=== PATIENT | female | born 1940 | race African-American/Black ===

== ENCOUNTER 2024-02-08 16:39 | Inpatient (IN) | payer MEDICARE, MEDICAID ==
[~2024-02-08] VITALS: Ht 175.3 cm; Wt 58.1 kg
[2024-02-08 16:41] VITALS: O2SAT 100
[2024-02-08] MEDS: MORPHINE SULFATE 4 MG/ML INJ (FOR IV/IM USE) IV ONE (17:25)
[2024-02-08 17:28] LABS: BASOPHILS % 0.3 % (0.0-2.0); EOSINOPHILS % 0.3 % (0.0-5.0); HEMATOCRIT. 32.8 % (36.0-48.0); LYMPHOCYTES % 8.3 % (20.0-50.0); MEAN CORPUSCULAR HEMOGLOBIN 30.2 pg (28.0-32.0); MEAN CORPUSCULAR HGB CONC 33.6 g/dL (31.0-37.0); MEAN CORPUSCULAR VOLUME 89.7 fL (81.0-99.0); MONOCYTES % 5.9 % (2.0-8.0); NEUTROPHILS % 85.2 % (40.0-76.0); PLATELET 286 x1000/uL (130-400); RED BLOOD CELL COUNT 3.66 mill/uL (4.2-5.4); RED CELL DISTRIBUTION WIDTH 15.1 % (11.6-14.6); WHITE BLOOD COUNT 8.6 x1000/uL (4.5-11.0)
[2024-02-08 17:30] LABS: CHLORIDE 111 mEq/L (98-107); POTASSIUM 5.2 mEq/L (3.5-5.1); SODIUM 136 mEq/L (136-145)
[2024-02-08 17:31] LABS: CARBON DIOXIDE 19 mEq/L (21-32)
[2024-02-08 17:32] LABS: CALCIUM 9.7 mg/dL (8.7-10.4)
[2024-02-08 17:36] LABS: CREATININE 1.5 mg/dL (0.6-1.0); GLUCOSE 139 mg/dL (70-105)
[2024-02-08 17:37] LABS: TROPONIN I HIGH SENSITIVITY 4 ng/L (3.0-34); UREA NITROGEN BLOOD 26 mg/dL (9-23)
[2024-02-08 18:05] LABS: PROTHROMBIN TIME 10.9 sec (9.6-11.0)
[2024-02-08] MEDS ORDERED: MORPHINE SULFATE 4 MG/ML INJ (FOR IV/IM USE) IV ONE (18:15)
[2024-02-08] MEDS: ASPIRIN 325MG EC TABLET PO ONE (18:30)
[2024-02-08] MEDS: MORPHINE SULFATE 4 MG/ML INJ (FOR IV/IM USE) IV NR (18:30)
[2024-02-08 19:29] LABS: TROPONIN I HIGH SENSITIVITY 4 ng/L (3.0-34)
[2024-02-08] MEDS: SODIUM CHLORIDE 0.9% 1,000 ML IV NR (19:41)
[2024-02-08] MEDS ORDERED: IOHEXOL-350 100 ML BOTTLE ONE (21:36)
[2024-02-08 23:30] VITALS: BP 130/32; PULSE 67; RESP 20; TEMP 97.5
[2024-02-09] MEDS ORDERED: LATA2.5D14 EACHEYE (00:42)
[2024-02-09] MEDS ORDERED: ASPI-1497 PO (00:42)
[2024-02-09] MEDS ORDERED: INDA2.5T5 PO (00:42)
[2024-02-09] MEDS ORDERED: ATOR40TA70 PO (00:42)
[2024-02-09] MEDS ORDERED: TERA5CAP4 PO (00:42)
[2024-02-09] MEDS ORDERED: IBUP-2029 PO (00:42)
[2024-02-09] MEDS ORDERED: OXYB-52 PO (00:42)
[2024-02-09] MEDS ORDERED: IPRA4AER INH (00:42)
[2024-02-09] MEDS ORDERED: FLUT9.9S BOTHNSTRLS (00:42)
[2024-02-09] MEDS ORDERED: LABE100T9 PO (00:42)
[2024-02-09] MEDS ORDERED: POLY17PO3 PO (00:42)
[2024-02-09] MEDS ORDERED: CYAN-50 PO (00:42)
[2024-02-09] MEDS ORDERED: SPIR100T5 PO (00:42)
[2024-02-09] MEDS ORDERED: TIOT18CA8 INH (00:42)
[2024-02-09] MEDS ORDERED: B50 GT (00:42)
[2024-02-09] MEDS ORDERED: MIRT-89 PO (00:42)
[2024-02-09] MEDS ORDERED: [UNRECOGNIZED DRUG - CODE] PO (00:42)
[2024-02-09] MEDS ORDERED: NIFE20CA PO (00:42)
[2024-02-09] MEDS ORDERED: CLONIDINE 0.1MG TABLET PO PRN (04:45)
[2024-02-09] MEDS ORDERED: HYDROCODONE/ACETAMINOPHEN 5/325MG TABLET PO PRN (04:45)
[2024-02-09 08:00] VITALS: BP 102/60; PULSE 78; RESP 16; TEMP 97.7
[2024-02-09] MEDS: ENOXAPARIN 30MG/0.3ML SYR SUBCUT SCH (09:00)
[2024-02-09 10:10] LABS: BASOPHILS % 0.2 % (0.0-2.0); HEMATOCRIT. 31.2 % (36.0-48.0); HEMOGLOBIN. 10.2 g/dL (12.0-16.0); LYMPHOCYTES % 8.1 % (20.0-50.0); MEAN CORPUSCULAR HEMOGLOBIN 29.8 pg (28.0-32.0); MEAN CORPUSCULAR HGB CONC 32.8 g/dL (31.0-37.0); MEAN CORPUSCULAR VOLUME 90.7 fL (81.0-99.0); MEAN PLATELET VOLUME 7.1 fl (7.4-10.4); MONOCYTES % 7.1 % (2.0-8.0); NEUTROPHILS % 84.6 % (40.0-76.0); PLATELET 279 x1000/uL (130-400); RED BLOOD CELL COUNT 3.44 mill/uL (4.2-5.4); RED CELL DISTRIBUTION WIDTH 15.7 % (11.6-14.6); WHITE BLOOD COUNT 10.9 x1000/uL (4.5-11.0)
[2024-02-09 10:38] LABS: CHLORIDE 111 mEq/L (98-107); POTASSIUM 5.8 mEq/L (3.5-5.1); SODIUM 137 mEq/L (136-145)
[2024-02-09 10:39] LABS: CALCIUM 10.2 mg/dL (8.7-10.4); CARBON DIOXIDE 19 mEq/L (21-32)
[2024-02-09 10:43] LABS: TROPONIN I HIGH SENSITIVITY 8 ng/L (3.0-34)
[2024-02-09 10:44] LABS: CREATININE 1.6 mg/dL (0.6-1.0); GLUCOSE 97 mg/dL (70-105); UREA NITROGEN BLOOD 27 mg/dL (9-23)
[2024-02-09 12:00] VITALS: BP 106/44; PULSE 82; RESP 18; TEMP 97
[2024-02-09 16:00] VITALS: BP 113/50; PULSE 72; RESP 18; TEMP 98
[2024-02-09] MEDS: NIFEDIPINE XL 30MG TAB PO SCH (17:00)
[2024-02-09] MEDS: LABETALOL HCL 200MG TABLET PO SCH (17:00)
[2024-02-09] MEDS ORDERED: NALOXONE HCL 0.4MG/ML VIAL IV PRN (17:15)
[2024-02-09 20:00] VITALS: BP 139/59; PULSE 72; RESP 19; TEMP 97.9
[2024-02-09] MEDS: TERAZOSIN HCL 5MG CAPSULE PO SCH (22:15)
[2024-02-09] MEDS: MIRTAZAPINE 15MG TABLET PO SCH (22:15)
[2024-02-09] MEDS: ATORVASTATIN CALCIUM 40MG TABLET PO SCH (22:16)
[2024-02-10] VITALS: BP 140/55; PULSE 75; RESP 19; TEMP 97.9
[2024-02-10 04:00] VITALS: BP 129/46; PULSE 79; RESP 19; TEMP 97.8
[2024-02-10 08:00] VITALS: BP 124/50; PULSE 63; RESP 18; TEMP 97.7
[2024-02-10] MEDS: ASPIRIN 81MG EC TABLET PO SCH (08:55)
[2024-02-10] MEDS: OXYBUTYNIN CHLORIDE 5MG TABLET PO SCH (08:56)
[2024-02-10] MEDS ORDERED: ALBUTEROL (0.083%) 2.5MG/3ML NEB HHN NR (10:00)
[2024-02-10] MEDS: SODIUM POLYSTYRENE SULFONATE 15 G/60 ML BOT PO NR (10:32)
[2024-02-10 12:00] VITALS: BP 141/64; PULSE 87; RESP 20; TEMP 97.9
[2024-02-10 16:00] VITALS: BP 122/54; PULSE 88; RESP 18; TEMP 97.6
[2024-02-10] MEDS: BENZONATATE 100MG CAPSULE PO PRN (18:03)
[2024-02-10 20:00] VITALS: BP 136/49; PULSE 67; RESP 19; TEMP 97.9
[2024-02-11] VITALS (7 sets, daily range): BP systolic 94–149; BP diastolic 39–69; PULSE 64–83; RESP 16–19; TEMP 97–98.1
[2024-02-11 07:45] LABS: CALCIUM 9.4 mg/dL (8.7-10.4)
[2024-02-11 07:49] LABS: BASOPHILS % 0.3 % (0.0-2.0); HEMATOCRIT. 30.4 % (36.0-48.0); HEMOGLOBIN. 10.3 g/dL (12.0-16.0); LYMPHOCYTES % 9.7 % (20.0-50.0); MEAN CORPUSCULAR HEMOGLOBIN 30.1 pg (28.0-32.0); MEAN CORPUSCULAR HGB CONC 33.9 g/dL (31.0-37.0); MEAN CORPUSCULAR VOLUME 88.8 fL (81.0-99.0); MEAN PLATELET VOLUME 7.4 fl (7.4-10.4); MONOCYTES % 4.9 % (2.0-8.0); NEUTROPHILS % 84.1 % (40.0-76.0); PLATELET 295 x1000/uL (130-400); RED BLOOD CELL COUNT 3.42 mill/uL (4.2-5.4); RED CELL DISTRIBUTION WIDTH 15.3 % (11.6-14.6); WHITE BLOOD COUNT 7.3 x1000/uL (4.5-11.0)
[2024-02-11 07:50] LABS: CREATININE 1.3 mg/dL (0.6-1.0)
== END 2024-02-11 18:45 | DRG 552 ==
LOC: ER 16:39 → 7EST 19:58
PROVIDERS: ADMIT Internal Medicine; ATTEND Internal Medicine
DX: M54.2 Cervicalgia (principal); N17.9 Acute kidney failure, unspecified; N18.9 Chronic kidney disease, unspecified; J45.909 Unspecified asthma, uncomplicated; I12.9 Hypertensive chronic kidney disease with stage 1 through stage 4 chronic kidney disease, or unspecified chronic kidney disease; E87.5 Hyperkalemia; E78.5 Hyperlipidemia, unspecified; G89.29 Other chronic pain; Z79.899 Other long term (current) drug therapy; Z79.82 Long term (current) use of aspirin; Z88.0 Allergy status to penicillin; Z88.1 Allergy status to other antibiotic agents
CPT/HCPCS: 36415; 71045; 71275; 76770; 80048; 83880; 84484; 85025; 85379; 93005; 93306; 99291; J1650; J2270; Q9967